=== PATIENT | female | born 1960 | race Two or more races ===

== ENCOUNTER 2017-10-12 19:48 | Emergency (ER) | payer MEDICAID ==
[~2017-10-12] VITALS: Ht 165.1 cm; Wt 50.3 kg
[~2017-10-12 19:48] MED LIST: CLOTRIMAZOLE15 GM TOPIC; CYCLOBENZAPRINE10 MG ORAL; IBUPROFEN600 MG ORAL; MACROBID100 MG ORAL; NKM
[2017-10-12] MEDS ORDERED: TESSALON PERLE100 MG ORAL (21:16)
[2017-10-12 21:30] VITALS: BP 150/99
--- NOTE | 2017-10-12 22:39 | Emergency Room Report ---
History of Present Illness General Chief Complaint: Upper Respiratory Illness Source: Patient Present Illness HPI 36-year-old female with hypertension presents with cough, runny nose for one month . Cough is productive with clear phlegm. Pt still eating/drinking well. + sick contacts. No recent travel. No SOB, cp, abdominal pain, n/v/d. Allergies: Coded Allergies: No Known Allergies (Unverified , 12/12/14) Patient History Past Medical History: see triage record Past Surgical History: none Pertinent Family History: none Reviewed Nursing Documentation: PMH: Agreed, PSxH: Agreed Nursing Documentation-PMH Hx Cardiac Problems: Yes - PALPITATIONS Hx Hypertension: Yes Review of Systems All Other Systems: negative except mentioned in HPI Physical Exam Vital Signs Date Time Temp Pulse Resp B/P (MAP) Pulse Ox O2 Delivery O2 Flow Rate FiO2 10/12/17 20:25 97.9 110 16 185/103 98 97.9 10/12/17 20:58 Room Air Sp02 EP Interpretation: reviewed, normal General Appearance: normal inspection, well appearing, no apparent distress, alert, GCS 15, non-toxic Head: normocephalic, atraumatic Eyes: bilateral eye normal inspection, bilateral eye PERRL, bilateral eye EOMI ENT: normal ENT inspection, normal pharynx, normal voice, moist mucus membranes Neck: normal inspection, full range of motion, supple Respiratory: normal inspection, lungs clear, normal breath sounds, no respiratory distress, no retraction, no wheezing, speaking full sentences, chest symmetrical Cardiovascular #1: normal inspection, regular rate, rhythm, no edema, normal capillary refill Cardiovascular #2: 2+ radial (R), 2+ radial (L) Gastrointestinal: normal inspection, non tender, soft, non-distended, no guarding Musculoskeletal: normal inspection, back normal, normal range of motion, non- tender Neurologic: normal inspection, alert, oriented x3, responsive, motor strength/ tone normal, sensory intact, normal gait, speech normal Psychiatric: normal inspection, judgement/insight normal, memory normal Skin: normal inspection, normal color, no rash, warm/dry, well hydrated, normal turgor Medical Decision Making Diagnostic Impression: Primary Impression: Viral upper respiratory tract infection with cough ER Course 56-year-old female with runny nose and cough Appears non- toxic, well hydrated, tolerating PO DDX: Viral URI, no concern for pneumonia, patient's lung exam normal Plan: None in Emergency Room ER course: Pt stable in ED, remains nontoxic appearing, no sob. Tolerating PO Patient also found to be hypertensive, states that she has hypertensive medication but she has not started yet. She is instructed to follow up with primary care Dr. Disposition: Patient discharged to home with Mario Givens Patient instructed to follow up with PMD in 1 week. Also instructed to take motrin/tylenol at home. Very strict return precautions discussed with patient such as intractable fever and chills, unable to eat or drink, severe chest pain or shortness of breath. Patient verbalized understanding and agrees with plan. Please note that this Emergency Department Report was dictated using [employer] claims examiner technology software, occasionally this can lead to erroneous entry secondary to interpretation by the dictation equipment Last Vital Signs Date Time Temp Pulse Resp B/P (MAP) Pulse Ox O2 Delivery O2 Flow Rate FiO2 10/12/17 21:30 97.9 88 16 150/99 98 Room Air 97.9 Disposition: HOME, SELF-CARE Condition: Improved Scripts Benzonatate* (MARIO CASTILLO*) 100 Mg Capsule 100 MG ORAL THREE TIMES A DAY for 7 Days, #21 ANNA Prov: Luis Manuel Mckee M.D. 10/12/17 Patient Instructions: Upper Respiratory Infection, Adult Luis Manuel Mckee M.D. Oct 12, 2017 22:39
--- NOTE | 2017-10-15 16:07 | Cardiology Report ---
APPROVED REPORT EKG Measurement Heart [id number] Sinus rhythm with occasional premature ventricular complexes Biatrial enlargement Low voltage QRS Cannot rule out Anterior infarct, age undetermined Abnormal ECG
== END 2017-10-12 21:31 | disposition home or self-care (01) ==
LOC: EMR 20:51
DX: J06.9 Acute upper respiratory infection, unspecified (principal); B34.9 Viral infection, unspecified; I10 Essential (primary) hypertension
CPT/HCPCS: 93005; 99283